=== PATIENT | male | born 1970 | race Caucasian/White ===

== ENCOUNTER 2016-11-07 06:37 | Emergency (ER) | payer BC, OTHER ==
[2016-11-07 06:47] VITALS: BP 154/90; PULSE 79; RESP 16; TEMP 97.9
--- NOTE | 2016-11-07 07:39 | ED ---
General Adult HPI - General Chief complaint: Back Pain/Injury Stated complaint: IHS/back injury Time Seen by Provider: 11/07/16 07:15 Source: patient, RN notes reviewed Mode of arrival: ambulatory Limitations: no limitations - History of Present Illness Initial comments: Patient is a pleasant 46-year-old male presenting to the emergency Department with back pain. 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 Patient had sudden development of back pain. Back pain has been persistent since that time. Onset was sometime around 4 AM. Patient states discomfort increases with movement. No difficulty in breathing however it hurts to take a deep breath. Discomfort is mid back, more so on the right side. No weakness. No history of chronic back pain. - Related Data Home Medications Medication Instructions Recorded Confirmed Dextroamphetamine/Amphetamine 15 mg PO QAM 11/07/16 11/07/16 [Adderall Xr] Tamsulosin [Flomax] 0.4 mg PO DAILY 11/07/16 11/07/16 Terbinafine HCl [LamISIL] 250 mg PO DAILY 11/07/16 11/07/16 Previous Rx's Medication Instructions Recorded Cyclobenzaprine [Flexeril] 10 mg PO TID PRN #12 tablet 11/07/16 Ibuprofen [Motrin] 600 mg PO Q6HR PRN #20 tab 11/07/16 Allergies Allergy/AdvReac Type Severity Reaction Status Date / Time No Known Allergies Allergy Verified 11/07/16 06:44 Review of Systems ROS Statement: Those systems with pertinent positive or pertinent negative responses have been documented in the HPI. ROS Other: All systems not noted in ROS Statement are negative. Constitutional: Denies: fever Eyes: Denies: eye pain ENT: Denies: ear pain Respiratory: Denies: cough Cardiovascular: Denies: chest pain Endocrine: Denies: fatigue Gastrointestinal: Denies: abdominal pain Genitourinary: Denies: dysuria Musculoskeletal: Reports: back pain Skin: Denies: rash Neurological: Denies: weakness Past Medical History Past Medical History: Hypertension, Prostate Disorder Additional Past Medical History / Comment(s): crohn's History of Any Multi-Drug Resistant Organisms: None Reported Past Surgical History: Orthopedic Surgery Additional Past Surgical History / Comment(s): abdominal sx Past Psychological History: ADD/ADHD Smoking Status: Current every day smoker Past Alcohol Use History: None Reported Past Drug Use History: None Reported General Exam Limitations: no limitations General appearance: alert, in no apparent distress Head exam: Present: atraumatic Eye exam: Present: normal appearance, PERRL ENT exam: Present: normal oropharynx Neck exam: Present: normal inspection Respiratory exam: Present: normal lung sounds bilaterally Cardiovascular Exam: Present: regular rate, normal rhythm GI/Abdominal exam: Present: soft. Absent: tenderness Extremities exam: Present: normal inspection Back exam: Present: tenderness (Right parathoracic T10 region with muscle fullness and tenderness.) Neurological exam: Present: alert. Absent: motor sensory deficit Psychiatric exam: Present: normal affect, normal mood Skin exam: Present: normal color Course Vital Signs 11/07/16 06:44 Temperature 97.9 F Pulse Rate 79 Respiratory 16 Rate Blood Pressure 154/90 O2 Sat by Pulse 99 Oximetry Medical Decision Making - Medical Decision Making Patient reexamined. Patient and family updated. - Radiology Data Radiology results: image reviewed (Thoracic x-ray shows no acute process) Disposition Clinical Impression: Thoracic back pain Disposition: HOME SELF-CARE Condition: Stable Instructions: Thoracic Pain (ED) Additional Instructions: Please follow-up with [employer] For recheck and further work restrictions. Return for difficulty breathing, increased pain, weakness, worsening symptoms or any other concerns. Prescriptions: Cyclobenzaprine [Flexeril] 10 mg PO TID PRN #12 tablet PRN Reason: Pain Ibuprofen [Motrin] 600 mg PO Q6HR PRN #20 tab PRN Reason: Pain Referrals: Javi Zamudio MD [Primary Care Provider] - 1-2 days Time of Disposition: 08:36
--- NOTE | 2016-11-07 08:05 | XR ---
EXAMINATION TYPE: XR thoracic spine 2V DATE OF EXAM: 11/07/2016 CLINICAL HISTORY: Upper back pain after lifting injury. TECHNIQUE: Frontal, lateral, and swimmer's view of thoracic spine are obtained. COMPARISON: None. FINDINGS: Thoracic spine show satisfactory alignment without evidence of acute fracture or dislocatio n. Vertebral body heights and disc space heights are preserved. Visualized ribs and pedicles are unr emarkable bilaterally. IMPRESSION: No acute fracture or dislocation is seen in the thoracic spine.
[2016-11-07] MEDS ORDERED: ORPHENADRINE 30 MG/ML 2 ML VIAL IM STA (08:33)
[2016-11-07] MEDS ORDERED: KETOROLAC 60 MG/2 ML VIAL IM STA (08:33)
== END 2016-11-07 09:07 | disposition home or self-care (01) ==
LOC: EC 06:37
DX: M54.6 Pain in thoracic spine (principal); I10 Essential (primary) hypertension; F90.9 Attention-deficit hyperactivity disorder, unspecified type; F17.200 Nicotine dependence, unspecified, uncomplicated; Z79.899 Other long term (current) drug therapy; X50.0XXA Overexertion from strenuous movement or load, initial encounter; Y99.0 Civilian activity done for income or pay
CPT/HCPCS: 72070; 99283; 96372 ×2; J2360; J1885

== ENCOUNTER 2020-05-22 16:50 | Emergency (ER) | payer BC ==
[2020-05-22] MEDS ORDERED: DIPH,PERTUS(ACELL)TETVAC-LF 0.5 ML VIAL IM ONE (17:09)
--- NOTE | 2020-05-22 17:14 | ED ---
General Adult HPI - General Source: patient Mode of arrival: ambulatory Limitations: no limitations <Garfield Wilkinson - Last Filed: 05/22/20 18:48> <Awilda Roe - Last Filed: 05/23/20 07:54> - General Chief complaint: Wound/Laceration Stated complaint: foot lac - History of Present Illness Initial comments: Patient was seen as medical screening for advanced triage purposes: 42-year-old male presents to the emergency room complaining of laceration. Patient states he stepped on an L bracket. He did cut his foot. He was not wearing a shoe. Tetanus is not up to date. He denies any other injuries. He denies difficulty moving the toe. Patient has no other complaints at this time including shortness of breath, chest pain, abdominal pain, nausea or vomiting, headache, or visual changes. (Garfield Wilkinson) - Related Data Home Medications Medication Instructions Recorded Confirmed Dextroamphetamine/Amphetamine 15 mg PO QAM 11/07/16 11/07/16 [Adderall Xr] Tamsulosin [Flomax] 0.4 mg PO DAILY 11/07/16 11/07/16 Terbinafine HCl [LamISIL] 250 mg PO DAILY 11/07/16 11/07/16 Previous Rx's Medication Instructions Recorded Cyclobenzaprine [Flexeril] 10 mg PO TID PRN #12 tablet 11/07/16 Ibuprofen [Motrin] 600 mg PO Q6HR PRN #20 tab 11/07/16 Cephalexin [Keflex] 500 mg PO Q6HR 5 Days #20 cap 05/22/20 Allergies Allergy/AdvReac Type Severity Reaction Status Date / Time No Known Allergies Allergy Verified 05/22/20 17:10 Review of Systems ROS Other: All systems not noted in ROS Statement are negative. <Garfield Wilkinson - Last Filed: 05/22/20 18:48> ROS Other: All systems not noted in ROS Statement are negative. <Awilda Roe - Last Filed: 05/23/20 07:54> ROS Statement: Those systems with pertinent positive or pertinent negative responses have been documented in the HPI. Past Medical History Past Medical History: Hypertension, Prostate Disorder Additional Past Medical History / Comment(s): crohn's History of Any Multi-Drug Resistant Organisms: None Reported Past Surgical History: Orthopedic Surgery Additional Past Surgical History / Comment(s): abdominal sx Past Psychological History: ADD/ADHD Smoking Status: Current every day smoker Past Alcohol Use History: None Reported Past Drug Use History: None Reported <Garfield Wilkinson P - Last Filed: 05/22/20 18:48> General Exam Limitations: no limitations General appearance: alert, in no apparent distress Head exam: Present: atraumatic, normocephalic, normal inspection Eye exam: Present: normal appearance, PERRL, EOMI. Absent: scleral icterus, conjunctival injection, periorbital swelling ENT exam: Present: normal exam, mucous membranes moist Neck exam: Present: normal inspection. Absent: tenderness, meningismus, lymphadenopathy Respiratory exam: Present: normal lung sounds bilaterally. Absent: respiratory distress, wheezes, rales, rhonchi, stridor Cardiovascular Exam: Present: regular rate, normal rhythm, normal heart sounds. Absent: systolic murmur, diastolic murmur, rubs, gallop, clicks GI/Abdominal exam: Present: soft, normal bowel sounds. Absent: distended, tenderness, guarding, rebound, rigid Extremities exam: Present: full ROM (Full range motion of the right foot including fourth digit), normal capillary refill (Capillary refill less than 2 seconds in right 4th toe. No puncture wound present), other (Right plantar aspect fourth digit has a small laceration noted on the proximal phalanx measuring about 1 cm) Neurological exam: Present: alert <Garfield Wilkinson P - Last Filed: 05/22/20 18:48> Course Vital Signs 05/22/20 05/22/20 17:08 19:33 Temperature 98.4 F 98.7 F Pulse Rate 109 H 100 Respiratory 20 16 Rate Blood Pressure 145/96 140/86 O2 Sat by Pulse 95 98 Oximetry Procedures - Laceration Laceration #1 Consent Obtained: verbal consent Indication: laceration Site: foot Size (cm): 1 Description: linear Depth: simple, single layer Anesthetic Used: lidocaine 1% Anesthesia Technique: local infiltration Amount (mls): 1 Pre-repair: wound explored, irrigated extensively (Saline pressure irrigation) Type of Sutures: nylon Size of Sutures: 5-0 Number of Sutures: 2 Technique: simple, interrupted Patient Tolerated Procedure: well, no complications <Garfield Wilkinson P - Last Filed: 05/22/20 18:48> Medical Decision Making <Garfield Wilkinson - Last Filed: 05/22/20 18:48> <Awilda Roe - Last Filed: 05/23/20 07:54> - Medical Decision Making XR of the right foot is negative. Laceration repaired. Tetanus up-to-date. Patient will be put on Keflex to prevent infection. He will follow up with [facility]. He'll return here for suture removal. He will monitor for signs of infection. (Garfield Wilkinson) I was available for consultation in the emergency department. The history and physical exam were done by the midlevel provider. I was consulted for this patients care. I reviewed the case with the midlevel provider and based on their presentation of the patient, I agree with the assessment, medical decision making and plan of care as documented. Chart was dictated using [employer] dictation software. Attempts were made to correct any dictation errors however some typographical errors may persist. (Awilda Roe) Disposition Is patient prescribed a controlled substance at d/c from ED?: No Time of Disposition: 18:47 <Garfield Wlikinson - Last Filed: 05/22/20 18:48> <Awilda Roe - Last Filed: 05/23/20 07:54> Clinical Impression: Laceration Disposition: HOME SELF-CARE Condition: Good Instructions (If sedation given, give patient instructions): Care For Your Stitches (ED), Laceration (ED) Additional Instructions: Please keep the area clean. Take the antibiotic as directed and watch for signs of infection. Please follow-up with your doctor. Return to the emergency room for any worsening symptoms. Return in 7-10 days for suture removal. Prescriptions: Cephalexin [Keflex] 500 mg PO Q6HR 5 Days #20 cap Referrals: Javi Zamudio MD [Primary Care Provider] - 1-2 days
[2020-05-22] MEDS ORDERED: LIDOCAINE 1% INJ 10MG/ML (20 ML MDV) SQ ONE (18:21)
--- NOTE | 2020-05-22 18:33 | XR ---
Result: History: Pain. Comparison: None available. Technique: 3 views of the right foot. Findings: The bone mineralization is appropriate for age. No acute fracture or dislocation is seen. The visualized osseous structures are in anatomic alignmen t. The joint spaces are preserved. No radiopaque foreign body. Impression: No acute osseous abnormality.
[2020-05-22 19:34] VITALS: BP 140/86; PULSE 100; RESP 16; TEMP 98.7
== END 2020-05-22 19:33 | disposition home or self-care (01) ==
LOC: EC 16:50
DX: S91.311A Laceration without foreign body, right foot, initial encounter (principal); I10 Essential (primary) hypertension; F17.200 Nicotine dependence, unspecified, uncomplicated; Z23 Encounter for immunization; W22.8XXA Striking against or struck by other objects, initial encounter
CPT/HCPCS: 73630; 90715; 99282; 12001; 90471; J2001